=== PATIENT | female | born 1990 | race Caucasian/White ===

== ENCOUNTER 2025-06-05 12:23 | Emergency (ER) | payer MEDICAID, SELFPAY ==
[2025-06-05 13:25] VITALS: BP 124/70; PULSE 88; RESP 20; TEMP 36.7; O2SAT 100
--- NOTE | 2025-06-05 13:38 | EDNOTE_ITS ---
<Statement entered by Rebecca Doran MD - 06/12/25 14:33> As co-signing physician, I was present and available for consult prn. I concur with the plan and care as documented by the midlevel provider. ED Back Injury Pain RME/HPI General Chief Complaint: Back Pain/Injury Stated Complaint: 3 SLIPPED DISCS IN BACK Time Seen by Provider: 06/05/25 13:02 Arrival date/time: 06/05/25 12:23 This is a 35-year-old female that comes into the emergency room with complaints of back pain and left leg pain. Patient states this pain is not new this is chronic. Patient is seen by Dr. And living earl and also a doctor in [place]. Patient is currently looking for a pain management doctor. Patient has no new injuries. Patient states she recently had a CT scan of her lower spine and found that she had 3 herniated disks. Patient is currently awaiting a an appointment with the pain management doctor. Patient is also awaiting with a neurosurgeon for possible surgery. Patient states she does not get insurance until August. Patient has no new symptoms. Patient was recently seen by her doctor and they are weaning her off gabapentin and putting her on Lyrica. Patient states she is on 300 mg of gabapentin and 75 mg of of Lyrica twice a day. Patient denies any numbness tingling. Patient denies any loss of bowel or bladder control. Patient states a lot of her pain is is to her left leg. Related Data Previous Rx's ?Medication ?Instructions ?Recorded naproxen 500 mg tablet 500 mg PO BID PRN pain #30 t abs 06/02/23 ondansetron 4 mg disintegrating 4 mg PO Q8H PRN nausea and 06/02/23 tablet vomiting #30 tabs Allergies Allergy/AdvReac Type Severity Reaction Status Date / Time No Known Allergies Allergy Verified 06/05/25 12:26 Review of Systems Review of Systems Systems Reviewed: All systems reviewed, normal except as documented Past Medical History Past Medical History NEUROLOGIC: Positive Neurological Disorders and Migraine; Negative Seizures CARDIAC: Negative Cardiac Disorders or Congestive Heart Failure RESPIRATORY: Negative Chronic Obstructive Pulmonary Disease (COPD) GASTROINTESTINAL: Negative Gastrointestinal Disorders GENITOURINARY: Negative Genitourinary Disorders or Renal Disease REPRODUCTIVE: Positive Previous Pregnancies (2) MUSCULOSKELETAL: Negative Musculoskeletal Disorders ENDOCRINE: Negative Endocrine Disorders, Diabetes Mellitus Type 1 or Diabetes Mellitus Type 2 HEMATOLOGIC: Positive Blood Disorders and Anemia OTHER HISTORY: Negative Hospitalization, Autoimmune Disease, Down Syndrome, Developmental Delay, Falls, Blood Transfusions, Anesthesia Reactions, Chicken Pox, Measles or Mumps Family History FAMILY HISTORY: Positive Family Cardiac Disorders and Family Cancer; Negative Family Neurologic Problems, Family Psychiatric Problems, Family Respiratory Disorders, Family Gastrointestinal Problems, Family Surgery or Family Anesthesia Reaction Surgical History SURGICAL: Positive Tubal Ligation and Section (X2); Negative Cardiac Surgery, Endocrine Surgery, Thyroidectomy, Ear Surgery or Abdominal Surgery Social History SMOKING STATUS: Current some day smoker SUBSTANCE USE: does not use ED Exam Narrative Physical exam: VITAL SIGNS: Reviewed. GENERAL APPEARANCE: Alert and interactive, follows commands, no acute distress HEAD AND FACE: Non-traumatic. ENT: PERRL, conjuctiva pink and clear, eyelid no trauma, Mucous membrane moist. NECK: Supple, nontender, no nuchal rigidity. CHEST: No tenderness, no crepitus, no paradoxical movement, no retractions. LUNGS: breathing even and unlabored HEART: Regular rate, cap refill less than 2 seconds ABDOMEN: Soft, nondistended, no guarding, nontender NEUROLOGICAL: Gross motor function intact sensory function intact, Appropriate for age. MUSCULOSKELETAL: low back nontender, full range of motion. no midline tenderness, no meningismus, no step offs, pain to lateral muscles of left lower back. EXTREMITIES: No redness no swelling no skin breakdown on bilateral foot and leg. Distal neurovascular status intact bilateral foot SKIN: Color pink, dry Course Quality Measures none Orders Category Date Time Status HYDROcodone*/APAP 5/325 [[place] 5/325] Med 06/05/25 13:36 Discontinued 2 tab PO X1 ONE Ketorolac Inj [Toradol Inj] Med 06/05/25 13:36 Discontinued 60 mg IM X1 ONE Metoclopramide [Reglan] Med 06/05/25 13:36 Discontinued 10 mg PO X1 ONE Vital Signs Vital signs: Vital Signs Temperature 98.1 F 06/05/25 13:25 Pulse Rate 88 06/05/25 13:25 Respiratory Rate 20 06/05/25 13:25 Blood Pressure 124/70 06/05/25 13:25 Pulse Oximetry (%) 100 06/05/25 13:25 Oxygen Delivery Method Room Air 06/05/25 13:25 Back Pain / Injury MDM Narrative MDM Narrative:: Patient feels better after pain medication Toradol, [place], Reglan given. Explained to patient at length to make sure she calls and makes an appoint with primary doctor to have them continue to work on pain management doctor and also neurosurgery consult for possible surgery. Patient has no new symptoms. Patient is already followed being followed by her primary doctor. Patient feels comfortable plan of care. Follow up with primary provider in 1-2 days. Come back to ED if symptoms change or worsen vishnuon dictation: Although this document has been carefully reviewed, there may still be some phonetic and other typographical errors. These errors are purely grammatical due to imperfections in the software program and should not be construed in any way to compromise the substance of the patient's medical care during this visit. Patient data External records reviewed:: [facility] previous records Clinical information provided by:: patient Social determinants that could affect healthcare access:: none Patient has the following chronic illnesses:: None How is presenting disease/condition affected by chronic disease/condition?: no chronic disease Evaluation data The following diagnostics were reviewed and interpreted by me:: other (specify) (None) Lab and/or radiology exams considered but not ordered:: None Interpretation Summary: See note Medications / Prescriptions Medications or Prescriptions considered but not ordered:: None Medication administrations:: Medication Administration History Discontinued Medications Hydrocodone Bitart/Acetaminophen (Hydrocodone/Apap 5/325 Tablet) 2 tab PO X1 ONE Stop: 06/05/25 13:37 Last Admin: 06/05/25 13:44 Dose: 2 tab Documented By: JAMES Ketorolac Tromethamine (Ketorolac Inj 60 Mg/2 Ml Vial) 60 mg IM X1 ONE Stop: 06/05/25 13:37 Last Admin: 06/05/25 13:45 Dose: 60 mg Documented By: OA Metoclopramide HCl (Metoclopramide 5 Mg Tablet) 10 mg PO X1 ONE Stop: 06/05/25 13:37 Last Admin: 06/05/25 13:44 Dose: 10 mg Documented By: OA See MAR Consultations Consultation(s) initiated? (list below): No Diagnosis Differential diagnosis back pain/injury: lumbar radiculopathy, strain of lumbar region, renal colic and pyelonephritis Most likely diagnosis given after review of the tests above:: Chronic back pain Admission Indicated Admission indicated?: not indicated Admission Request Was there a request for admission?: No Disposition Plan Disposition Plan: Discharge Discharge Attestation Discharge Attestation: The patient and all family members were given an opportunity to ask questions and understood the discharge instructions. Discharge instructions specifically effects, indications for sooner follow up or return to the emergency department, and the expected course of current diagnosis. Patient condition: Stable Discharge Plan Plan Patient Disposition: HOME (Self Care) Patient condition on transfer: Stable Prescriptions/Referrals Prescriptions/Med Rec: No Action naproxen 500 mg tablet 500 mg PO BID PRN (Reason: pain) Qty: 30 0RF ondansetron 4 mg tablet,disintegrating 4 mg PO Q8H PRN (Reason: nausea and vomiting) Qty: 30 0RF Referrals: Jake Roman([facility])MD [Primary Care Provider, Family Practice] - In 1 week Problem List Clinical Impression: Chronic back pain, Chronic leg pain Patient/Caregiver Discharge Instructions Discharge Activity: activity as tolerated Education Materials: ED Back Pain (Acute or Chronic) Additional Instructions: Follow up with primary provider in 1-2 days. Come back to ED if symptoms change or worsen Print Language: Korean Stand Alone Forms: Cynthia Award Info., Patient Portal Info Letter PA/COMIC BOOK WRITER Supervising Physician PA/COMIC BOOK WRITER Supervising Physician: aaliyah
[2025-06-05] MEDS: HYDROcodone/APAP 5/325 TABLET 2 TAB PO (13:44)
[2025-06-05] MEDS: METOCLOPRAMIDE 5 MG TABLET 10 MG PO (13:44)
[2025-06-05] MEDS: KETOROLAC INJ 60 MG/2 ML VIAL IM (13:45)
== END 2025-06-05 14:51 | disposition home or self-care (01) ==
PROVIDERS: Emergency Provider Emergency Medicine; PCP Family Medicine
DX: M54.9 Dorsalgia, unspecified (principal); G89.29 Other chronic pain
CPT/HCPCS: 99281; J1885; A9270

== ENCOUNTER 2025-06-29 22:09 | Emergency (ER) | payer MEDICAID, SELFPAY ==
[2025-06-29 22:10] VITALS: BMI 18.6
[2025-06-29 23:16] VITALS: BP 106/51; PULSE 103; RESP 20; TEMP 37.1; O2SAT 96
--- NOTE | 2025-06-29 23:30 | PD.EDBACK ---
ED Back Injury Pain RME/HPI General Chief Complaint: Back Pain/Injury Stated Complaint: BACK PAIN Time Seen by Provider: 06/29/25 23:04 Arrival date/time: 06/29/25 22:09 35-year-old female with a history of chronic lower back pain reports with complaints of back pain radiating to the left lower extremity. Patient states that she has taken all prescribed home medications with no improvement of symptoms. Patient states that she has been applying heat to her back all day also with no resolution of pain. She denies numbness tingling or decreased range of motion of lower extremities changes in bowel or bladder habits or abdominal pain. Limitations: no limitations Related Data Previous Rx's ?Medication ?Instructions ?Recorded naproxen 500 mg tablet 500 mg PO BID PRN pain #30 tabs 06/02/23 ondansetron 4 mg disintegrating 4 mg PO Q8H PRN nausea and 06/02/23 tablet vomiting #30 tabs Allergies Allergy/AdvReac Type Severity Reaction Status Date / Time No Known Allergies Allergy Verified 06/05/25 12:26 Review of Systems Constitutional Constitutional: Denies chills and Denies fever(s) Genitourinary Genitourinary: Reports difficulty voiding, Denies dysuria, Denies hematuria, Denies urinary incontinence and Denies urinary hesitancy Musculoskeletal Musculoskeletal: Reports back pain, Denies deformity, Denies numbness and Denies tingling Integumentary/Breasts Skin/Breast: Denies unusual bruising and Denies wounds Neurologic Neurologic: Denies numbness and Denies tingling ED Exam General Limitations: Present no limitations General appearance: Present alert and in no apparent distress Respiratory Respiratory exam: Present normal lung sounds bilaterally Cardiovascular Cardiovascular exam: Present regular rate, normal rhythm and normal heart sounds Abdominal Exam Abdominal exam: Present soft and normal bowel sounds Extremities Exam Extremities exam: Present normal inspection and full ROM Back Exam Back exam: Present normal inspection, sciatic notch tenderness (L) and straight leg raise (L); Absent full ROM (no ROM secondary to pain), CVA tenderness (R), CVA tenderness (L) or sciatic notch tenderness (R) Neurological Exam Neurological exam: Present alert, oriented X3 and CN II-XII intact Psychiatric Psychiatric exam: Present normal affect and normal mood Skin Skin exam: Present warm, dry, intact and normal color Course Quality Measures none Orders Category Date Time Status Ketorolac Inj [Toradol Inj] Med 06/29/25 23:29 Once 60 mg IM X1 ONE oxyCODONE/APAP 5/325 [Percocet 5/325] Med 06/29/25 23:29 Once 1 tab PO X1 ONE Vital Signs Vital signs: Vital Signs Temperature 98.8 F 06/29/25 23:16 Pulse Rate 103 H 06/29/25 23:16 Respiratory Rate 20 06/29/25 23:16 Blood Pressure 106/51 L 06/29/25 23:16 Pulse Oximetry (%) 96 06/29/25 23:16 Oxygen Delivery Method Room Air 06/29/25 23:16 Back Pain / Injury Patient data External records reviewed:: None Clinical information provided by:: patient Social determinants that could affect healthcare access:: none Patient has the following chronic illnesses:: chronic lower back pain and left lower extremity radiculopathy How is presenting disease/condition affected by chronic disease/condition?: caused by Evaluation data The following diagnostics were reviewed and interpreted by me:: other (specify) (none) Lab and/or radiology exams considered but not ordered:: none Interpretation Summary: n/a Medications / Prescriptions Medications or Prescriptions considered but not ordered:: none Medication administrations:: Medication Administration History Ketorolac Tromethamine (Ketorolac Inj 60 Mg/2 Ml Vial) 60 mg IM X1 ONE Stop: 06/29/25 23:30 Oxycodone/Acetaminophen (Oxycodone/Apap 5/325 Tablet) 1 tab PO X1 ONE Stop: 06/29/25 23:30 as above Consultations Consultation(s) initiated? (list below): No Diagnosis Most likely diagnosis given after review of the tests above:: Chronic lower back pain, sciatica Admission Indicated Admission indicated?: not indicated Admission Request Was there a request for admission?: No Disposition Plan Disposition Plan: Discharge Discharge Attestation Discharge Attestation: The patient and all family members were given an opportunity to ask questions and understood the discharge instructions. Discharge instructions specifically effects, indications for sooner follow up or return to the emergency department, and the expected course of current diagnosis. Patient condition: Stable Discharge Plan Plan Patient Disposition: HOME (Self Care) Prescriptions/Referrals Prescriptions/Med Rec: No Action naproxen 500 mg tablet 500 mg PO BID PRN (Reason: pain) Qty: 30 0RF ondansetron 4 mg tablet,disintegrating 4 mg PO Q8H PRN (Reason: nausea and vomiting) Qty: 30 0RF Problem List Clinical Impression: Sciatica of left side, Chronic lower back pain Patient/Caregiver Discharge Instructions Discharge Activity: activity as tolerated Education Materials: ED Sciatica Additional Instructions: Your pain is caused by strain of your muscle tissue in your back and could sometime press on the nerves. Doing stretching techniques as discussed in your discharge packet as well as not sitting for long periods of time, but taking short walks, applying ice, use medications as directed and hydrating well will help decrease your pain. Try to avoid running, climbing hopping, jumping, kneeling, or squatting for 5- 7 days, and follow with your primary care provider if symptoms do not improve in 5 to 7 days Print Language: Andorran Stand Alone Forms: Cynthia Award Info., Patient Portal Info Letter
[2025-06-29] MEDS: KETOROLAC INJ 60 MG/2 ML VIAL IM (23:43)
== END 2025-06-30 00:08 | disposition home or self-care (01) ==
LOC: SERX 06-30 00:11
PROVIDERS: Emergency Provider Emergency Medicine; PCP Family Medicine
DX: M54.42 Lumbago with sciatica, left side (principal)
CPT/HCPCS: 96372; 99282; J1885; A9270